=== PATIENT | female | born 1955 | race Caucasian/White ===

== ENCOUNTER 2019-06-23 12:29 | Emergency (ER) | payer MEDICARE, OTHER ==
[~2019-06-23] VITALS: Ht 170.2 cm; Wt 108.9 kg
[~2019-06-23 12:29] MED LIST: BUS5 PO; GLU500 PO; IBUP-974 PO; LAM200 PO; LAMO200T7 PO; LISI10TA11 PO; METF500T2 PO; OMEP40EC14 PO; QUET200T PO; SIMV-34 PO; SIMV40TA1 PO; TRAM50TA3 PO; TRAZ-343 PO; ZIPR80CA1 PO; ZOLP10TA1 PO; ZOLP10TA6 PO
[2019-06-23 12:57] VITALS: BP 150/89
[2019-06-23] MEDS ORDERED: ALBUTEROL SULFATE/IPRATROPIU 3 ML SOL IH ONE ×3 (13:05→16:25)
--- NOTE | 2019-06-23 13:53 | NUR ---
PATIENT IN [facility] DRUG ORDERED ENCOURAGED PATIENT WITH ACKNOWLEDGEMENT FOR DEEP BEATHING DURING THERAPY
--- NOTE | 2019-06-23 13:57 | NUR ---
RT at chairside for breathing tx.
--- NOTE | 2019-06-23 13:59 | NUR ---
TO ED 01
--- NOTE | 2019-06-23 14:02 | NUR ---
64 y/o f presents to ER c/o difficulty breathing and headache. Difficulty breathing x3 weeks, worse today. Pt c/o headache, pain level 8/10. Pt also c/o abdominal and back pain from coughing and working to breathe. Pt respirations are even and mildly labored. O2 saturation 95% on RA. Rales heard upon auscultation in lower lobes. A&O x4. Family at bedside. Awaiting for ERMD to evaluate pt. Allergies: NKA Med hx: DM, HDL, Depression
--- NOTE | 2019-06-23 14:28 | NUR ---
Dr. Hernandez evaluating pt at bedside.
--- NOTE | 2019-06-23 15:02 | NUR ---
FOLLOW UP [facility] THERAPY AND RESPIRATORY DRUG GIVEN ORDERED
--- NOTE | 2019-06-23 16:52 | NUR ---
rt at bedside.
--- NOTE | 2019-06-23 16:55 | NUR ---
dr garnett at bedside evaluating pt.
[2019-06-23 17:23] VITALS: BP 156/75
--- NOTE | 2019-06-23 17:24 | NUR ---
Patient discharged with v/s stable. Written and verbal after care instructions given and explained regarding influenza virus. Patient alert, oriented and verbalized understanding of instructions. Ambulatory with steady gait. All questions addressed prior to discharge. ID band removed. Patient advised to follow up with PMD. Rx of tamiflu,albuterol and prednisone given. Patient educated on indication of medication including possible reaction and side effects. Opportunity to ask questions provided and answered.
== END 2019-06-23 17:24 | disposition home or self-care (01) ==
LOC: MED 12:29
DX: J09.X2 Influenza due to identified novel influenza A virus with other respiratory manifestations (principal); J10.1 Influenza due to other identified influenza virus with other respiratory manifestations; E11.9 Type 2 diabetes mellitus without complications; I10 Essential (primary) hypertension; F31.9 Bipolar disorder, unspecified; J45.909 Unspecified asthma, uncomplicated; Z79.899 Other long term (current) drug therapy; Z79.891 Long term (current) use of opiate analgesic; Z79.1 Long term (current) use of non-steroidal anti-inflammatories (NSAID)
CPT/HCPCS: 71045; 87804; 94640; 99285; J7620; Q0092

== ENCOUNTER 2019-08-28 18:31 | Emergency (ER) | payer MEDICARE, OTHER ==
[~2019-08-28] VITALS: Ht 170.2 cm; Wt 112.9 kg
[2019-08-28 18:38] VITALS: BP 159/86
== END 2019-08-28 18:59 | disposition home or self-care (01) ==
LOC: MED 18:31
DX: J06.9 Acute upper respiratory infection, unspecified (principal); E11.9 Type 2 diabetes mellitus without complications; I10 Essential (primary) hypertension; Z79.899 Other long term (current) drug therapy; Z79.84 Long term (current) use of oral hypoglycemic drugs
CPT/HCPCS: 82948; 99282; 99283